=== PATIENT | female | born 1935 | race Caucasian/White ===

== ENCOUNTER 2016-12-13 08:26 | Inpatient (IN) ==
[2016-12-13 09:04] LABS: MANUAL DIFF NEEDED? NO
[2016-12-13 09:07] LABS: BASO% 0.2 % (0.0-0.8); EOS# 0.12 X1000 (0.0-0.7); EOS% 1.3 % (0.0-10.0); HEMATOCRIT 37.4 % (37.0-47.0); HEMOGLOBIN 12.4 g/dL (12.0-16.0); LYMPH# 1.24 X1000 (1.2-3.4); LYMPH% 13.9 % (20.5-51.1); MCH 31.9 PG (27-31); MCHC 33.2 g/dL (33-37); MCV 96.1 FL (81-99); MONO# 0.62 X1000 (0.11-0.59); MONO% 6.9 % (1.7-9.3); MPV 11.1 FL (7.4-10.4); NEUT% 77.7 % (42.2-75.2); PLT 220 X1000 (130-400); RBC 3.89 XMIL (4.2-5.4)
[2016-12-13 09:16] LABS: INR 1.13
--- NOTE | 2016-12-13 09:25 | Diag Imaging Result Document ---
PROCEDURE NAME: HEAD/C-SPINE W/O CONTRAST - 12/13/[address]: A CT dose reduction protocol was used. COMPARISON: 02/04/2015. FINDINGS: Stable moderate cerebral atrophy. No intracranial mass or hemorrhage. The skull is intact. There is some mucus in the right maxillary sinus, otherwise, the sinuses are clear. IMPRESSION: No acute intracranial injury. CT CERVICAL SPINE: A CT dose reduction protocol was used. COMPARISON: None. FINDINGS: Alignment is grossly anatomic. Vertebral body heights are preserved. There is severe multilevel disk space narrowing with degenerative sclerosis and osteophytes. No evidence of fracture or subluxation. No significant central canal compromise. IMPRESSION: Advanced multilevel degenerative disk disease. No acute disease. [facility]
[2016-12-13 09:31] LABS: ALBUMIN 3.7 g/dL (3.5-5.0); CALCIUM 9.5 mg/dL (8.8-10.2); MAGNESIUM 1.8 mg/dL (1.5-2.7); POTASSIUM 4.2 mmol/L (3.5-5.1); TOTAL BILIRUBIN 0.37 mg/dL (0.20-1.00); TOTAL PROTEIN 6.9 g/dL (6.3-8.3)
--- NOTE | 2016-12-13 09:58 | Diag Imaging Result Document ---
PROCEDURE NAME: ABDOMEN/PELVIS W/CONTRAST - 12/13/2016 CT ABDOMEN AND PELVIS WITH INTRAVENOUS CONTRAST, 12/13/2016: A CT dose reduction protocol was used. COMPARISON: CT chest 09/20/2016. FINDINGS: There is a trace left basilar pleural effusion. The right pleural effusion has completely resolved. There is some trace atelectasis in the left lower lobe. There are cholecystectomy clips. The liver, pancreas, spleen, adrenals, and kidneys are normal. No bowel obstruction or inflammation. No free air or free fluid. Urinary bladder, uterus, and rectum are normal. There are stable compression fractures at T11 and L1. IMPRESSION: No acute disease or change from prior. [facility]
[2016-12-13] MEDS ORDERED: NS 1,000 ML IV ONE (11:11)
[2016-12-13] MEDS ORDERED: TYLENOL PO PRN (12:30)
[2016-12-13] MEDS ORDERED: ZOFRAN IV PRN (12:30)
[2016-12-13] MEDS: DUONEB (A & A) INH SCH ×2 (15:50→22:42)
--- NOTE | 2016-12-13 16:28 | HISTORY AND PHYSICAL ---
PRIMARY CARE PROVIDER: CAMERON Fowler, with Dr. Hester. ONCOLOGY: Dr. Abbasi. CHIEF COMPLAINT: Increasing weakness with fall. HISTORY OF PRESENT ILLNESS: Ms. 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 She hit her head and had a left occipital scalp abrasion, left rib and axillary pain with old ecchymosis, but bridge tender to touch. She states that she has been unable to get up and move freely throughout the house. She tries to get up out of the chair, but frequently ends up sliding to the floor secondary to her weakness. She denies any nausea, vomiting, or diarrhea. She denies shortness of breath, phlegm, or fever. She just states that since she has become progressively weaker. Workup revealed that she is dehydrated and has ISIS on CKD. We will admit for further workup of weakness and order physical therapy, occupational therapy, and give her IV fluid hydration. We will also get an EKG to evaluate her atrial fibrillation. We will admit to the medical floor. PAST MEDICAL HISTORY: 1. COPD, on 2 L home O2. 2. Obstructive sleep apnea, on nightly CPAP. 3. Hypothyroidism. 4. Diabetes mellitus type 2. 5. Hypertension. 6. Chronic systolic congestive heart failure. 7. Chronic bilateral lower extremity edema. 8. Chronic atrial fibrillation. 9. 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 10. History of left breast cancer. Receives yearly medication once a year through Dr. Abbasi. PAST SURGICAL HISTORY: 1. Cholecystectomy. 2. Left mastectomy with lymph node removal. 3. Left carotid endarterectomy but no history of stroke. FAMILY HISTORY: Mother had coronary artery disease in her 50's and at the age of 73. SOCIAL HISTORY: She currently lives by herself. She has home health that follows along. She did have a 21 day stent at [facility] and was discharged there on September 13. She states that she smoked about 1.5 packs per day for about 40 years and that she quit about 20 years ago. She states she used to be a social drinker, but does not drink now. Denies illicit drug use. 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 She states she is still on that stay awake and sleep during the day mode. ALLERGIES: No known drug allergies. HOME MEDICATIONS: ProAir inhaled as needed, enteric-coated aspirin 81 mg p.o. daily, Coreg 6.25 mg p.o. at night and 12.5 mg p.o. in the morning, vitamin D3 2000 units p.o. twice daily, Cardizem 120 mg p.o. daily, Benadryl 25 mg p.o. at night for seasonal allergies, Lexapro 20 mg p.o. daily, Lasix 40 mg p.o. daily, Neurontin 300 mg p.o. twice daily, Synthroid 25 mcg p.o. daily, losartan 25 mg p.o. daily, metformin 1000 mg p.o. twice daily, potassium chloride extended release 10 mEq p.o. daily, Pravachol 40 mg p.o. nightly, prednisone 10 mg p.o. daily, Xarelto 20 mg p.o. with supper. REVIEW OF SYSTEMS: Fourteen point review of systems were complete and all were negative except for those mentioned in the above HPI. LABORATORY DATA: White blood cells 8,000, hemoglobin 12, hematocrit 37, platelet count 220,000. PT 12, INR 1.13. Sodium 134, potassium 4.2, chloride is 87, BUN 73, creatinine is 1.7, glucose 135, magnesium 1.8, bilirubin 0.37, AST 20, ALT 14. IMAGING: EKG pending. Head CT and cervical spine CT: No acute intracranial injury. Advanced multilevel degenerative disk disease, but no acute disease. Abdominal and pelvic CT: No acute disease or change from prior. Chest x-ray pending. PHYSICAL EXAMINATION: VITAL SIGNS: Temperature is 98.4 degrees, heart rate 79, respiratory rate 16, blood pressure 123/83, O2 saturation 96% on nasal cannula 2 L. She is 5 feet 2 inches tall, 180 pounds, BMI 32.9. GENERAL: Ms. Indigo Duke is a 81-year-old female. She is in no acute distress. Is able to answer questions appropriately. HEENT: Atraumatic, normocephalic. Pupils equal, round, reactive to light. Extraocular movements intact. There is a small left occipital scalp abrasion noted but no lump or swelling. NECK: No JVD or carotid bruits noted. CARDIOVASCULAR: Irregularly irregular rate and rhythm. No rubs, gallops, or murmurs. PULMONARY: Clear to auscultation. Bilateral breath sounds. No accessory muscle use or work of breathing noted. Left ribcage area with bruising and tenderness. ABDOMEN: Soft, nontender, nondistended. Positive bowel sounds x4. EXTREMITIES: There is 4/5 strength in all extremities. Lower extremity edema 1 to 2+, pitting. There are +1 dorsalis pedal pulses and +2 radial pulses. NEUROLOGIC: Alert and oriented x4. Moves all extremities equally. SKIN: Warm, dry, intact except for left occipital scalp abrasion that is small and bruising or ecchymosis around the left ribcage area. ASSESSMENT AND PLAN: 1. Acute kidney injury on chronic kidney disease stage 1-2. Intravenous fluid hydration for dehydration given. We will repeat a basic metabolic panel in the morning. We will hold the patient's Lasix. Hold metformin. We will hold all nephrotoxic medications. 2. History of atrial fibrillation. Continue Xarelto. We will get an electrocardiogram to evaluate rhythm. Continue beta-hermelindo and Cardizem. 3. Hypertension. Continue beta hermelindo only for now. 4. Hypothyroidism. Continue Synthroid and check thyroid stimulating hormones tomorrow. 5. Diabetes mellitus type 2. We will hold metformin. Do sliding scale insulin with pattern blood glucoses. 6. Chronic systolic congestive heart failure. It appears to be stable. There is no jugular venous distention. She does have lower extremity edema, but she is dehydrated. So will hold Lasix and give intravenous fluid hydration for now, monitor closely. 7. Chronic obstructive pulmonary disease. Continue home 2 L nasal cannula. We will continue albuterol/Atrovent every 6 hours. No exacerbation at this time. 8. Obstructive sleep apnea. Continue CPAP at night. 9. History of left breast cancer. Apparently she had an appointment with Dr. Abbasi for her yearly medication that she gets. We will consult him. 10. Generalized weakness with fall. We will do occupational therapy, physical therapy to assist with strength, conditioning exercises, and will need rehabilitation upon discharge. 11. Deep venous thrombosis prophylaxis. She is on Xarelto. 12. Gastrointestinal prophylaxis. Proton pump inhibitor. Dictated by CAMERON Gonzalez for Chandra Dupree MD cc: MD Talya Farnsworth CRNP Raina Brown, CRNP Omar J. Sosa-Chirinos, MD
[2016-12-13] MEDS: XARELTO PO SCH (18:38)
[2016-12-13] MEDS: HUMULIN R SUBQ SCH ×2 (18:39→23:48)
[2016-12-13] MEDS: NS 1,000 ML IV SCH (18:40)
[2016-12-13] MEDS: NEURONTIN PO SCH (20:45)
[2016-12-13] MEDS: VITAMIN D PO SCH (20:45)
[2016-12-13] MEDS: PRAVACHOL PO SCH (20:45)
[2016-12-13] MEDS: COREG PO SCH (20:45)
[2016-12-14] MEDS: DUONEB (A & A) INH SCH ×4 (03:16→23:14)
--- NOTE | 2016-12-14 05:10 | EKG Report ---
Test Performed on : 12/13/2016 1:53:58 PM Test Reason : DIZZY Blood Pressure : / mmHG Vent. Rate : 061 BPM Atrial Rate : 061 BPM P-R Int : 000 ms QRS Dur : 082 ms QT Int : 422 ms P-R-T Axes : 000 057 055 degrees QTc Int : 424 ms Undetermined rhythm Nonspecific ST and T wave abnormality Abnormal ECG When compared with ECG of 21-SEP-2016 06:42, Current undetermined rhythm precludes rhythm comparison, needs review Criteria for Inferior infarct are no longer present Nonspecific T wave abnormality has replaced inverted T waves in Anterior leads QT has shortened Unconfirmed Result
[2016-12-14] MEDS: SYNTHROID PO SCH ×2 (05:47→06:11)
[2016-12-14] MEDS: HUMULIN R SUBQ SCH ×4 (06:11→21:48)
[2016-12-14 07:38] LABS: MANUAL DIFF NEEDED? NO
[2016-12-14 07:47] LABS: INR 1.22; PTT 30.8 Seconds (22.0-36.0)
[2016-12-14 07:55] LABS: BASO% 0.4 % (0.0-0.8); EOS# 0.19 X1000 (0.0-0.7); EOS% 2.6 % (0.0-10.0); HEMOGLOBIN 12.7 g/dL (12.0-16.0); IMM GRAN# 0.02 X1000 (0.0-0.04); IMM GRAN% 0.3 % (0.0-0.5); LYMPH# 1.56 X1000 (1.2-3.4); LYMPH% 21.6 % (20.5-51.1); MCH 31.4 PG (27-31); MCHC 32.6 g/dL (33-37); MCV 96.5 FL (81-99); MONO# 0.66 X1000 (0.11-0.59); MONO% 9.1 % (1.7-9.3); MPV 11.2 FL (7.4-10.4); PLT 243 X1000 (130-400); RBC 4.04 XMIL (4.2-5.4)
[2016-12-14 07:58] LABS: ALBUMIN 3.4 g/dL (3.5-5.0); CALCIUM 9.3 mg/dL (8.8-10.2); MAGNESIUM 1.6 mg/dL (1.5-2.7); POTASSIUM 3.8 mmol/L (3.5-5.1); TOTAL BILIRUBIN 0.36 mg/dL (0.20-1.00); TOTAL PROTEIN 6.5 g/dL (6.3-8.3)
[2016-12-14] MEDS: NS 1,000 ML IV SCH (08:42)
[2016-12-14] MEDS: LEXAPRO PO SCH (08:44)
[2016-12-14] MEDS: COREG PO SCH ×2 (08:44→21:48)
[2016-12-14] MEDS: VITAMIN D PO SCH ×2 (08:44→21:48)
[2016-12-14] MEDS: PRILOSEC PO SCH (08:44)
[2016-12-14] MEDS: PREDNISONE PO SCH (08:44)
[2016-12-14] MEDS: ASPIRIN EC PO SCH (08:44)
[2016-12-14] MEDS: NEURONTIN PO SCH ×2 (08:44→21:48)
[2016-12-14] MEDS: CARDIZEM CD PO SCH (08:44)
--- NOTE | 2016-12-14 15:08 | PROGRESS NOTE ---
DATE: 12/14/2016 SUBJECTIVE: Increasing weakness and had fell. This is a 81-year-old whose past medical history includes COPD on home O2, diabetes mellitus type 2, congestive heart failure which is systolic dysfunction, atrial fibrillation which is chronic, chronic kidney disease stage 1-2. Apparently had a fall on , about 5 days before admission. Hit her head and had a left occipital scalp abrasion, left rib and axillary pain. Hit the rail I think around her commode. She states that she thinks she lost consciousness and complains that she has become weaker and weaker. PAST MEDICAL HISTORY: 1. COPD, on 2 L O2. 2. Obstructive sleep apnea, on CPAP. 3. Hypothyroidism. 4. Diabetes mellitus type 2. 5. Hypertension. 6. Chronic systolic congestive heart failure. 7. Chronic bilateral lower extremity edema. 8. Chronic atrial fibrillation. 9. Chronic kidney disease stage 1 to 2. 10. History of left breast cancer, receives yearly medication once a year through Dr. Abbasi. PAST SURGICAL HISTORY: 1. Status post cholecystectomy. 2. Left mastectomy, lymph node removal. 3. Left carotid endarterectomy. No history of CVA. OBJECTIVE: General: Today sitting up in chair, eating lunch. Feels much better. Vital signs: Pulse 80, respirations 18, blood pressure 132/74. HEENT: Pupils are equal, round. Lungs: Clear in all lung munoz. Cardiovascular: Regular rhythm and rate without murmur or S3. Abdomen: Soft. Skin: Warm and dry. Intake and output: Urine output is 2300 mL. LAB: White count 7,230, hematocrit 39, platelet count 243,000 thousand. Sodium 136, potassium 3.8, chloride 92, BUN 45, creatinine 1.0. Blood sugar 159, 118, 180. ASSESSMENT AND PLAN: 1. Acute kidney injury stage 1-2. Continue IV hydration. Hold metformin. 2. History of atrial fibrillation. Continue Xarelto. Follow on the monitor. Control rate. 3. Hypertension. Continue beta-hermelindo which also controls atrial fibrillation and ventricular rate. 4. Hypothyroidism, on Synthroid. Appears be euthyroid. 5. Diabetes mellitus type 2. Follow sugars. 6. Chronic systolic congestive heart failure. Volume status appears to be good. Good compensation. 7. Chronic obstructive pulmonary disease, on home O2 at 2 L. 8. Obstructive sleep apnea. 9. History of breast cancer in the left in the past. Note, she had a CT of her head done yesterday. Advanced multilevel degenerative disk disease but no intracranial abnormality. She had a CT of the abdomen and pelvis, no acute disease. They compared it to 09/20/2016. REVIEW OF ORDERS: I do not see any change at this point. She is on Xarelto 20 mg a day. She is on Pravachol 40 mg a day, prednisone 10 mg a day, Prilosec 40 mg a day, normal saline at 75 mL an hour, levothyroxine 25 mcg a day, Neurontin 300 mg b.i.d., Lexapro 20 mg q.a.m., diltiazem CD 120 mg daily, Coreg 6.25 mg b.i.d., aspirin 81 mg a day. She is getting albuterol ipratropium breathing treatments. cc: Edison Sanchez MD
[2016-12-14] MEDS: XARELTO PO SCH (16:32)
--- NOTE | 2016-12-14 17:08 | CONSULTATION ---
DATE OF CONSULTATION: 12/14/2016 ADMITTING PHYSICIAN: Dr. Clancy. REQUESTING PHYSICIAN: Dr. Clancy. PRIMARY CARE PROVIDER: Dr. Hester. ONCOLOGIST: Dr. Abbasi. We appreciate this consult. CHIEF COMPLAINT: Fall with dehydration and acute kidney injury and history of breast cancer. HISTORY OF PRESENT ILLNESS: Ms Duke is a very pleasant 81-year-old female, well known to us with a history of breast cancer. She is status post chemotherapy and radiation therapy completed in 2007. The patient continues to follow up in clinic. She does have a history of osteoporosis as well and was actually scheduled for Reclast infusion today. The patient reports that she had a fall approximately 5 days ago. She states that she hit her head and since that time has had profound weakness. Home health nurse presented to her home and recommended that she present to [facility] Emergency Department. Upon presentation to [facility] the patient was found to be in acute kidney injury with a history of chronic kidney disease. The patient was begun on IV fluid hydration and it was decided that she would be admitted. PAST MEDICAL HISTORY: 1. COPD on 2 L home O2. 2. Obstructive sleep apnea on CPAP. 3. Hypothyroidism. 4. Diabetes mellitus type 2. 5. Hypertension. 6. Chronic systolic congestive heart failure. 7. Chronic bilateral lower extremity edema. 8. Chronic atrial fibrillation. 9. 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 10. History of left breast cancer status post chemoradiation therapy completed in 2007. PAST SURGICAL HISTORY: 1. Cholecystectomy. 2. Left mastectomy with lymph node removal. 3. Left carotid endarterectomy. FAMILY HISTORY: Negative for any hematologic or oncologic problems. SOCIAL HISTORY: The patient does live alone. She has a history of smoking 1-1/2 pack cigarettes daily and quit approximately 20 years ago. She does not use alcohol or illicit drugs. MEDICATIONS ON ADMISSION: 1. ProAir inhalation. 2. Aspirin 81 mg. 3. Coreg. 4. Vitamin D3. 5. Cardizem. 6. Benadryl. 7. Lexapro. 8. Lasix. 9. Neurontin. 10. Synthroid. 11. Losartan. 12. Metformin. 13. Potassium chloride. 14. Pravachol. 15. Prednisone. 16. Xarelto. ALLERGIES: The patient has no known drug allergies. REVIEW OF SYSTEMS: A 14-point review of systems was obtained and is negative except for as mentioned in HPI. PHYSICAL EXAM: General: Ms Duke is a very pleasant 81-year-old female, well developed, well nourished. She is sitting up in a chair in no apparent distress. Vital Signs: Temperature is afebrile. Blood pressure 132/74, heart rate 84, respirations are 18. O2 saturation is 98% on 2 L nasal cannula O2. HEENT: Normocephalic, atraumatic. Mucous membranes are pink and moist. Sclerae is anicteric. Extraocular movements intact. Neck: Supple. Lungs: Clear to auscultation bilaterally. Chest expansion is equal bilaterally. CV: S1, S2 is heard without murmur, rub or gallop. Abdomen: Soft, nondistended, nontender. Bowel sounds are positive in all quadrants. No rebound or guarding noted. Extremities: Without clubbing or cyanosis. She does have trace bilateral lower extremity edema. Dermatologic: No rashes, bruises or lesions. Neurologic: The patient is awake, alert, and oriented x3. She has no focal deficit at this time. LABORATORY DATA: Hemoglobin 12.7, hematocrit 39.0, white blood cell count 7.23, platelets 243,000, ANC is 4.77. INR 1.22. Sodium 136, potassium 3.8, chloride 92, CO2 is 31, BUN 45, creatinine 1.0, glucose 118, calcium is 9.3, magnesium 1.6. ASSESSMENT AND PLAN: 1. History of breast cancer status post chemoradiation therapy completed in 2007. The patient continues to be followed in clinic by Dr. Abbasi. 2. Osteoporosis. Reclast was actually scheduled for today. We will reschedule Reclast infusion after acute illness is resolved. 3. Acute kidney insufficiency on chronic kidney disease stage 1 to 2, currently on intravenous fluid hydration with improvement in creatinine to 1.0. 4. History of atrial fibrillation on Xarelto. The patient is currently on a beta hermelindo and Cardizem as well. Would recommend continued Xarelto therapy. 5. Hypertension. We agree with antihypertensives as ordered. 6. Diabetes mellitus type 2 on sliding scale insulin. Stable at this time with a glucose of 118. 7. We will follow along with you and make further recommendations pending outcomes. The above reflects the history, exam, assessment and plan of Dr. Abbasi. Dictated by CAMERON Mireles for Arthur Abbasi MD cc: CAMERON Mireles MD
[2016-12-14] MEDS ORDERED: INSULIN PEN NEEDLES ONE (20:33)
[2016-12-14] MEDS: PRAVACHOL PO SCH (21:48)
[2016-12-15] MEDS: DUONEB (A & A) INH SCH ×3 (03:35→16:01)
[2016-12-15] MEDS: NS 1,000 ML IV SCH (05:17)
[2016-12-15] MEDS: SYNTHROID PO SCH (06:11)
[2016-12-15] MEDS: HUMULIN R SUBQ SCH ×4 (06:12→21:17)
[2016-12-15] MEDS ORDERED: LASIX IV ONE (08:56)
[2016-12-15] MEDS ORDERED: LOPRESSOR IV ONE (08:56)
[2016-12-15] MEDS ORDERED: KLOR-CON PO ONE (08:57)
[2016-12-15] MEDS: ASPIRIN EC PO SCH (08:58)
[2016-12-15] MEDS: VITAMIN D PO SCH ×2 (08:59→21:16)
[2016-12-15] MEDS: PRILOSEC PO SCH (09:00)
[2016-12-15] MEDS: NEURONTIN PO SCH ×2 (09:00→21:16)
[2016-12-15] MEDS: LEXAPRO PO SCH (09:00)
[2016-12-15] MEDS: PREDNISONE PO SCH (09:00)
[2016-12-15] MEDS: CARDIZEM CD PO SCH (09:00)
[2016-12-15] MEDS: COREG PO SCH ×2 (09:01→21:16)
--- NOTE | 2016-12-15 09:19 | Diag Imaging Result Document ---
PROCEDURE NAME: CHEST-PORTABLE - 12/15/2016 PORTABLE CHEST: COMPARISON: 09/22/2016. FINDINGS: The lungs are well expanded except for atelectasis or an infiltrate in the left base. I believe there is a small left effusion as well. There are scattered granulomata. The heart remains mildly prominent. The vessels are not distended. IMPRESSION: Atelectasis versus a small infiltrate in the left base.
[2016-12-15 09:28] LABS: MANUAL DIFF NEEDED? NO
[2016-12-15 09:32] LABS: BASO% 0.1 % (0.0-0.8); EOS# 0.15 X1000 (0.0-0.7); EOS% 2.2 % (0.0-10.0); HEMATOCRIT 35.7 % (37.0-47.0); HEMOGLOBIN 11.4 g/dL (12.0-16.0); LYMPH# 1.23 X1000 (1.2-3.4); MCH 31.2 PG (27-31); MCHC 31.9 g/dL (33-37); MCV 97.8 FL (81-99); MONO# 0.49 X1000 (0.11-0.59); MONO% 7.2 % (1.7-9.3); MPV 10.9 FL (7.4-10.4); NEUT% 72.5 % (42.2-75.2); PLT 212 X1000 (130-400); RBC 3.65 XMIL (4.2-5.4)
--- NOTE | 2016-12-15 10:11 | EKG Report ---
Test Performed on : 12/15/2016 09:10:09 AM Test Reason : afib Blood Pressure : / mmHG Vent. Rate : 061 BPM Atrial Rate : 394 BPM P-R Int : 000 ms QRS Dur : 084 ms QT Int : 402 ms P-R-T Axes : 000 014 121 degrees QTc Int : 404 ms Atrial fibrillation. with a competing junctional pacemaker. Low voltage QRS Nonspecific ST and T wave abnormality Abnormal ECG When compared with ECG of 13-DEC-2016 13:53, Nonspecific T wave abnormality, worse in Lateral leads Confirmed by Adela MUNOZ, Wesly Lovelace ([id number]) on 12/15/2016 6:41:44 PM
[2016-12-15] MEDS: XARELTO PO SCH (16:23)
--- NOTE | 2016-12-15 16:51 | PROGRESS NOTE ---
DATE: 12/15/2016 SUBJECTIVE: Ms. Duke was admitted on 12/13 for increased weakness. She had a fall. She fell in her bathroom. Sounds like it may have been a rapid syncopal episode, drop in blood pressure. She has a history of COPD on home O2. Diabetes mellitus. Congestive heart failure. Atrial fibrillation which is chronic. Chronic kidney disease stage 1-2. Left occipital scalp abrasion and right rib and axillary pain and ecchymosis. So was admitted with acute kidney injury. Given some fluid. MEDICAL HISTORY: 1. Status post fall. 2. Shoulder pain and rib pain. 3. Chronic atrial fibrillation. 4. Hypertension. 5. Hypothyroidism. 6. Diabetes mellitus. 7. History of heart failure. DIAGNOSTIC STUDIES: I think looking back to see if we had done an echocardiogram, she had an echocardiogram done on 08/24/2012. Right atrium was normal size. Right ventricle appeared to be enlarged with normal systolic function at that time. The left ventricle overall size appears normal at 4.6 cm. Left ventricular systolic function. Extremely difficult to estimate. Some views maybe 40%. Others appear in the 50% range, but does appear to have diminished systolic function. PHYSICAL EXAM: General: On exam today, she feels better. Vital Signs: Temperature 98.6, pulse 67, respirations 22, blood pressure 98/77. Eyes: Pupils are equal, round. Neck: CVP less than 6 cm. Lungs: Clear in all lung munoz. Cardiovascular: Regular rate without murmur or S3. Good urine output. LAB: White count 6840, hematocrit 35, platelet count 212,000. Blood sugar is 196, 136, 138. ASSESSMENT AND PLAN: 1. Acute kidney injury, stage 1 or 2 which is improved with fluids. Will recheck her basic metabolic profile. Creatinine down to 1.0 though. 2. Recent fall. Pain in her shoulder and ribs. Seems to be improving. Continue physical therapy. 3. Atrial fibrillation which is chronic. She is on Xarelto. 4. Hypothyroidism. 5. Diabetes mellitus type 2. Blood sugars well controlled. 6. Mild systolic congestive heart failure. Appears well compensated. 7. Chronic obstructive pulmonary disease on home oxygen. 8. Obstructive sleep apnea. 9. History of breast cancer in the distant past. Note, she states that she did not know anything about atrial fibrillation, even though she has history of chronic atrial fibrillation, and she is on medication for it. At any rate, she appears to be improving. Will continue her present orders. Check some more blood work in the morning. cc: Edison Sanchez MD
[2016-12-15] MEDS: PRAVACHOL PO SCH (21:16)
[2016-12-16] MEDS: DUONEB (A & A) INH SCH ×5 (02:19→21:09)
[2016-12-16] MEDS: HUMULIN R SUBQ SCH ×4 (06:11→20:54)
[2016-12-16] MEDS: SYNTHROID PO SCH (06:11)
--- NOTE | 2016-12-16 06:53 | EKG Report ---
Test Performed on : 12/16/2016 06:15:37 AM Test Reason : CP Blood Pressure : / mmHG Vent. Rate : 089 BPM Atrial Rate : 250 BPM P-R Int : 000 ms QRS Dur : 084 ms QT Int : 368 ms P-R-T Axes : 000 015 133 degrees QTc Int : 447 ms Atrial fibrillation. Nonspecific T wave abnormality Abnormal ECG When compared with ECG of 15-DEC-2016 09:10, No significant change was found Confirmed by Adela MUNOZ, Wesly Lovelace ([id number]) on 12/16/2016 8:39:00 AM
--- NOTE | 2016-12-16 07:27 | Diag Imaging Result Document ---
PROCEDURE NAME: CHEST-PORTABLE - 12/16/2016 AP PORTABLE CHEST, 12/16/2016 AT 0500 HOURS: FINDINGS: There is alveolar opacity in the retrocardiac region of the left lower lobe. This has not changed appreciably since the previous study of 12/15/2016. IMPRESSION: Atelectasis versus pneumonia left lower lobe.
[2016-12-16 07:31] LABS: CALCIUM 8.6 mg/dL (8.8-10.2); POTASSIUM 3.7 mmol/L (3.5-5.1)
[2016-12-16 08:24] LABS: FREE T4 1.36 ng/dL (0.93-1.70)
[2016-12-16] MEDS: PREDNISONE PO SCH (08:47)
[2016-12-16] MEDS: COREG PO SCH ×2 (08:47→20:54)
[2016-12-16] MEDS: VITAMIN D PO SCH ×2 (08:47→20:53)
[2016-12-16] MEDS: LEXAPRO PO SCH (08:47)
[2016-12-16] MEDS: NEURONTIN PO SCH ×2 (08:47→20:53)
[2016-12-16] MEDS: ASPIRIN EC PO SCH (08:48)
[2016-12-16] MEDS: CARDIZEM CD PO SCH (08:48)
[2016-12-16] MEDS: PRILOSEC PO SCH (08:48)
--- NOTE | 2016-12-16 14:40 | PROGRESS NOTE ---
DATE: 12/16/2016 SUBJECTIVE: Ms. Duke is feeling better. Breathing better. OBJECTIVE: Temperature 97.9 degrees, pulse 91, respirations 19, blood pressure 132/75.HEENT: The pupils are equal, round. Lungs: Clear in all lung munoz. Cardiovascular: Regular rhythm and rate without murmur or S3. Blood sugars 214,126, 295. LABORATORY DATA: Reviewed from yesterday. Hematocrit stable at 35, white count okay. Blood work from this morning: Electrolytes, sodium 139, potassium 3.7, chloride 96, BUN 29, creatinine 0.9, blood sugar is 126, 11, 295. EKG done yesterday, atrial fibrillation with nonspecific T-wave abnormality. No change. Chest x- ray from today, atelectasis versus pneumonia. Left lower lobe. Clinically improving. ASSESSMENT AND PLAN: 1. Acute kidney injury, which appears to have resolved. Creatinine 0.9. 2. Left lower lobe pneumonia. Clinically improving. Radiographically very little change. Continue present antibiotic and breathing treatments. 3. Diabetes mellitus type 2. Blood sugars have been sporadic but overall she is eating well and getting a little stronger. She would like to go to rehab. We will see what we can set up for rehab for her. cc: Edison Sanchez MD
--- NOTE | 2016-12-16 16:31 | PROGRESS NOTE ---
DATE: 12/16/2016 ADDENDUM REPORT: Note that she has left lower lobe atelectasis and really clinically does not appear to show any sign of pneumonia. Clinically, she is improved. She is not on antibiotics. Her white blood cell count is well in the normal limits, so I do not see any sign of active pneumonitis. cc: Edison Sanchez MD
[2016-12-16] MEDS: XARELTO PO SCH (16:51)
[2016-12-16] MEDS: PRAVACHOL PO SCH (20:53)
[2016-12-17] MEDS: DUONEB (A & A) INH SCH ×3 (04:01→15:33)
[2016-12-17] MEDS: HUMULIN R SUBQ SCH ×3 (06:07→16:59)
[2016-12-17] MEDS: SYNTHROID PO SCH (06:07)
[2016-12-17] MEDS: VITAMIN D PO SCH (09:38)
[2016-12-17] MEDS: ASPIRIN EC PO SCH (09:38)
[2016-12-17] MEDS: LEXAPRO PO SCH (09:38)
[2016-12-17] MEDS: CARDIZEM CD PO SCH (09:38)
[2016-12-17] MEDS: NEURONTIN PO SCH (09:38)
[2016-12-17] MEDS: PRILOSEC PO SCH (09:38)
[2016-12-17] MEDS: PREDNISONE PO SCH (09:39)
[2016-12-17] MEDS: COREG PO SCH (09:43)
[2016-12-17 14:27] VITALS: BP 97/44
--- NOTE | 2016-12-17 14:38 | DISCHARGE SUMMARY ---
ADMISSION DATE: 12/13/2016 DISCHARGE DATE: This is a 81-year-old patient followed by Dr. Abbasi with Oncology, by Renetta Castillo in Dr. Hester's office. Ms. Duke is a 81-year-old with a past medical history of COPD, is on O2 at 2 L, diabetes mellitus type 2, history of congestive heart failure, history of atrial fibrillation which is chronic, history of chronic kidney disease. Had a fall in the past, , 5 days before admission. She hit her head, left occipital scalp abrasion, left rib axillary pain, ecchymoses but mangle tender to touch. She states that she was unable to get up or move freely through the house. She tries to get up out of the bed or chair but frequently ends up sliding on the floor secondary to weakness. Denies any nausea, vomiting, diarrhea. She denies shortness of breath, sputum production. States that since or roughly 5 days before she came in she became progressively weaker, woke up on the morning of admission. Workup in the ER revealed mild dehydration, acute kidney injury, chronic kidney disease. Admitted for further workup. EKG showed atrial fibrillation. PAST MEDICAL HISTORY: 1. COPD on 2 L O2. 2. Obstructive sleep apnea on CPAP. 3. Hypothyroidism. 4. Diabetes mellitus type 2. 5. Hypertension. 6. Chronic systolic congestive heart failure. 7. Chronic bilateral lower extremity edema. 8. Chronic atrial fibrillation. 9. Chronic kidney disease stage 1 or 2. 10. Left breast cancer followed by Dr. Abbasi. PAST SURGICAL HISTORY: 1. Cholecystectomy. 2. Left mastectomy and left node removal. 3. Left carotid endarterectomy with no history of stroke. She was admitted. No sign of significant fractures. There was a question of whether she had pneumonia. Followup chest x-ray revealed atelectasis in the left lower lobe. She was treated empirically and it was possible there could be a pneumonia as well which improved clinically. Breathing comfortably and wanted to go to rehab on 12/17/2016. Remained in atrial fibrillation. Rate was controlled. Her renal function looks good. Blood sugars under fairly good control. [place] she could go to rehab on 12/17/2016. DISCHARGE MEDICATIONS: She will be on Xarelto 20 mg a day. Prednisone 10 mg a day. Pravachol 40 mg a day. Prilosec 20 mg a day. Synthroid 25 mcg a day. Neurontin 300 mg b.i.d. Lexapro 20 mg q.a.m. Cardizem CD 120 mg daily. Vitamin D 2000 units b.i.d. Coreg 6.25 mg b.i.d. Aspirin 81 mg a day. Continue her present O2. cc: Edison Sanchez MD
[2016-12-17] MEDS: XARELTO PO SCH (17:02)
--- NOTE | 2017-01-12 10:16 | PROVIDER DOCUMENTATION ---
This chart was entered by Jacy Hernandez Scribe, acting as scribe for Ezio Lara MD. HPI-General Adult - General Chief Complaint: Fall Stated Complaint: FALL Time Seen by Provider: 12/13/16 08:30 Source: patient Allergies/Adverse Reactions: Patient Allergies Allergy/AdvReac Type Severity Reaction Status Date / Time No Known Allergies Allergy Verified 12/13/16 08:39 Home Medications: Home Medication List Medication Instructions Recorded Confirmed Last Taken Type Carvedilol [Coreg] 6.25 mg PO ORDERED 04/04/15 12/13/16 09/19/16 History Levothyroxine [Synthroid] 25 microgm PO DAILY 04/04/15 12/13/16 09/19/16 History Potassium Chloride E.r. [Micro-K] 10 meq PO DAILY 04/04/15 12/13/16 09/18/16 History Metformin [Glucophage] 1,000 mg PO BID CC 09/19/16 12/13/16 09/19/16 History Diphenhydramine HCl [Benadryl] 25 mg PO DAILY 09/20/16 12/13/16 09/19/16 09:00 History Gabapentin 300 mg PO BID 09/20/16 12/13/16 Unknown History PRAVAstatin [Pravachol] 40 mg PO QPM 09/20/16 12/13/16 09/18/16 21:00 History Aspirin EC 81 mg PO DAILY #0 tablet 09/23/16 12/13/16 Unknown Rx Diltiazem C.d. [Cardizem Cd] 120 mg PO DAILY #30 capsule 09/23/16 12/13/16 Unknown Rx Escitalopram [Lexapro] 20 mg PO QAM #0 tablet 09/23/16 12/13/16 Unknown Rx Furosemide [Lasix] 40 mg PO DAILY #30 09/23/16 12/13/16 09/18/16 Rx Losartan [Cozaar] 25 mg PO DAILY #30 tablet 09/23/16 12/13/16 Unknown Rx Rivaroxaban [Xarelto] 20 mg PO WSUPPER #30 tablet 09/23/16 12/13/16 Unknown Rx Albuterol Sulfate [Proair Hfa] 90 mcg IH DIRECTED 12/13/16 12/13/16 Unknown History Cholecalciferol (Vitamin D3) 2,000 unit PO BID 12/13/16 12/13/16 Unknown History [Vitamin D3] Prednisone 10 mg PO DAILY 12/13/16 12/13/16 Unknown History Acetaminophen [Tylenol] 650 mg PO Q6H PRN PRN #0 tablet 12/17/16 Unknown Rx Albuterol 2.5MG/Ipratrop 0.5MG 3 ml INH RTQ6H neb 12/17/16 Unknown Rx [Duoneb (A & A)] Omeprazole [Prilosec] 40 mg PO DAILY capsule 12/17/16 Unknown Rx - History of Present Illness -Gen Adult Nature of Presenting Problems: 81 year old F presents to the ED with a cc of a fall with an onset of 4 days ago. PT states that she has gotten more weak since then. EMS was called at the time of the fall by Home Health but pt did not want to be sent to the hospital. Daughter states that she has fallen a few more times since then without injury. PT c/o left lateral rib pain and a abrasion to left occipital head. PT was seen 3 months ago and admitted and then sent to 21 days of rehab. Daughter requesting admission for admission to 21 days of rehab. Location of Pain/Injury: reports: chest (left ribs) Quality of Pain: reports: aching Severity: reports: mild Onset/Duration: reports: 4 days ago Timing: reports: still present Context/Activities at Onset: reports: none Associated Symptoms: reports: chest pain (left ribs), weakness Review of Systems - Adult - REVIEW OF SYSTEMS - ADULT Constitutional: denies: chills, fever Eyes: reports: no symptoms reported Ears, Nose, Mouth & Throat: reports: no symptoms reported Cardiovascular: reports: chest pain (left rib pain). denies: palpitations Respiratory: denies: cough, shortness of breath Gastrointestinal: denies: nausea, vomiting Genitourinary: reports: no symptoms reported Musculoskeletal: reports: muscle aches. denies: muscle weakness Integumentary: reports: other (head abrasion). denies: skin sores/ulcer, skin thickening Neurological: reports: no symptoms reported Psychiatric: reports: no symptoms reported Endocrine: reports: no symptoms reported Hematologic/Lymphatic: reports: no symptoms reported Allergic/Immunologic: reports: no symptoms reported All Other Systems: Reviewed and Negative Past History - Adult - PAST MEDICAL HISTORY-ADULT Review of Records: reports: Nursing Assessment Review, Medications Reviewed Major Childhood Illnesses: reports: denies history Cardiovascular: reports: CAD, CHF, HTN, hyperlipidemia - PRIOR SURGERIES/PROCEDURES Surgical/Procedure History: reports: indwelling device (port a cath), other ( masectomy, carotid artery; Angiogram in 2015) - IMMUNIZATION STATUS Childhood Immunizations: See Nurse Assessment Flu Vaccine: See Nurse Assessment - SOCIAL HISTORY Smoking: non-smoker Substance Use: none/never Alcohol Use Frequency: never Physical Exam-General - PHYSICAL EXAM-ADULT Initial Vital Signs Reviewed: Yes - CONSTITUTIONAL General Appearance: appears well, alert, no apparent distress - HEAD, EARS, NOSE, MOUTH & THROAT HENMT: other (abrasion to left occipital head, dry oral membranes) - RESPIRATORY Respiratory: lungs clear, normal breath sounds, other (left lateral rib tenderness). negative: crepitus - CARDIOVASCULAR Cardiovascular: irregularly irregular - GASTROINTESTINAL (ABDOMEN) Abdominal Exam: non tender, soft - MUSCULOSKELETAL Extremity: normal inspection - SKIN Integumentary: normal color, normal turgor, warm/dry - NEUROLOGIC Neurologic: motor weakness (generalized) - PSYCHIATRIC Psych/Mental Status: normal mood/affect, normal thought content, normal thought process, oriented x 3 Progress - PLAN OF CARE/RESULTS Progress/Plan/Lab Results: Vital Signs - 8 hr 12/13/16 08:26 Temperature 98.4 F Pulse Rate 78 Respiratory Rate 18 Blood Pressure 157/71 O2 Sat by Pulse Oximetry 97 Laboratory Results - last 24 hr 12/13/16 12/13/16 12/13/16 08:50 08:50 08:50 WBC 8.94 RBC 3.89 L Hgb 12.4 Hct 37.4 MCV 96.1 MCH 31.9 H MCHC 33.2 RDW Std Deviation 14.2 Plt Count 220 MPV 11.1 H Immature Gran % (Auto) 0.0 Neut % (Auto) 77.7 H Lymph % (Auto) 13.9 L Stearns % (Auto) 6.9 Eos % (Auto) 1.3 Baso % (Auto) 0.2 Immature Gran # (Auto) 0.00 Neut # (Auto) 6.94 H Lymph # (Auto) 1.24 Stearns # (Auto) 0.62 H Eos # (Auto) 0.12 Baso # (Auto) 0.02 PT 12.0 H INR 1.13 Sodium 134 L Potassium 4.2 Chloride 87 L Carbon Dioxide 32 Anion Gap 15 BUN 73 H Creatinine 1.7 H Estimated GFR/1.73 m2 29 BUN/Creatinine Ratio 43 Glucose 135 H Calculated Osmolality 292 Calcium 9.5 Magnesium 1.8 Total Bilirubin 0.37 AST 20 ALT 14 Alkaline Phosphatase 65 Total Protein 6.9 Albumin 3.7 Globulin 3.2 Albumin/Globulin Ratio 1.2 Orders Category Date Time Status ABDOMEN/PELVIS W/CONTRAST [CT] Stat Exams 12/13/16 08:37 Draft HEAD/C-SPINE W/O CONTRAST [CT] Stat Exams 12/13/16 08:37 Draft CBC WITH DIFF [HEME] Stat Lab 12/13/16 08:50 Completed COMPREHENSIVE METABOLIC PANEL [CHEM] Stat Lab 12/13/16 08:50 Completed MAGNESIUM [CHEM] Stat Lab 12/13/16 08:50 Completed PROTIME WITH INR [COAG] Stat Lab 12/13/16 08:50 Completed pt is seen to have profound azotemia, new in past 6 days. likely prerenal from dehydration and poor intake. Dr. Vela paged for admit, coming to ED to [facility]. Result Diagrams: 12/15/16 09:10 12/16/16 06:55 - CT/MRI 1 CT Study: Cervical Spine, Head Impression: Normal CT Results: No acute intracranial disease, Advanced multilevel DDD(Rubén) 2 CT Study: Abdomen, Pelvis Impression: Normal CT Results: No acute disease or change from prior(Dr. Montana) - CONSULTS/PCP/HOSPITALIST Notification #1 *Consult/PCP/Hospitalist*: Dr. Clancy(hospitalist) Time Discussed: 11:28 Consult Disposition: Admit Departure - Departure Time of Disposition Decision: 12:00 DIAGNOSIS: Renal failure (ARF), acute on chronic, Orthostatic syncope Disposition: ADMITTED INPATIENT 09 Certified Medical Emergency: Emergent Condition: Fair - Critical Care Note This patient required my direct & personal management of CC.: No This chart was documented by the indicated scribe, (Jacy Hernandez Scribe) and accurately reflects the services I performed and decisions made by me, Ezio Lara MD, as attested by the provider's signature.
== END 2016-12-17 17:53 ==
LOC: ED 08:26 → 3N 13:30 → SUATTDRO 13:30
PROVIDERS: ATTEND Emergency Medicine

== ENCOUNTER 2017-03-23 11:44 | Inpatient (IN) ==
[2017-03-23 12:56] LABS: MANUAL DIFF NEEDED? NO
--- NOTE | 2017-03-23 13:08 | Diag Imaging Result Doc PS360 ---
EXAM: CHEST-1 VIEW HISTORY: a fib TECHNIQUE: Portable AP COMPARISON: 12/16/2016 FINDINGS: There are scattered granuloma bilaterally. The heart remains mildly prominent. The vessels are not distended. There are several old rib fractures. Tiny left effusion versus pleural thickening. No consolidation. IMPRESSION: Cardiomegaly. Electronically signed by Sae Brandon 03/23/2017 1:05 PM
[2017-03-23 13:09] LABS: BASO% 0.5 % (0.0-0.8); EOS# 0.21 X1000 (0.0-0.7); EOS% 2.8 % (0.0-10.0); HEMATOCRIT 36.8 % (37.0-47.0); HEMOGLOBIN 11.4 g/dL (12.0-16.0); LYMPH# 1.27 X1000 (1.2-3.4); MCH 32.5 PG (27-31); MCV 104.8 FL (81-99); MONO# 0.62 X1000 (0.11-0.59); MONO% 8.3 % (1.7-9.3); MPV 10.6 FL (7.4-10.4); NEUT% 71.4 % (42.2-75.2); PLT 238 X1000 (130-400); RBC 3.51 XMIL (4.2-5.4)
[2017-03-23 13:16] LABS: ALBUMIN 3.7 g/dL (3.5-5.0); CALCIUM 9.4 mg/dL (8.8-10.2); MAGNESIUM 1.8 mg/dL (1.5-2.7); TOTAL BILIRUBIN 0.38 mg/dL (0.20-1.00); TOTAL PROTEIN 6.2 g/dL (6.3-8.3)
[2017-03-23] MEDS ORDERED: ZOFRAN IV PRN (13:45)
[2017-03-23] MEDS ORDERED: TYLENOL PO PRN (13:45)
[2017-03-23] MEDS ORDERED: SALINE LOCK IV FLUID XX ONE (13:45)
--- NOTE | 2017-03-23 15:22 | EKG Report ---
Test Performed on : 03/23/2017 1:57:48 PM Test Reason : Heart Failure Admission Blood Pressure : / mmHG Vent. Rate : 048 BPM Atrial Rate : 046 BPM P-R Int : 000 ms QRS Dur : 078 ms QT Int : 476 ms P-R-T Axes : 000 056 041 degrees QTc Int : 425 ms Atrial fibrillation. with slow ventricular response. Low voltage QRS Septal infarct , age undetermined Abnormal ECG When compared with ECG of 16-DEC-2016 06:15, Vent. rate has decreased BY 41 BPM Septal infarct is now present Nonspecific T wave abnormality no longer evident in Lateral leads Confirmed by Matteo Noriega DO ([id number]) on 03/25/2017 1:24:45 PM
[2017-03-23] MEDS: LASIX 100 MG in NS 90 ML IV SCH (15:37)
[2017-03-23] MEDS: DUONEB (A & A) INH SCH ×2 (15:39→22:37)
--- NOTE | 2017-03-23 16:31 | HISTORY AND PHYSICAL ---
PRIMARY CARE PROVIDER: CARLOS Fowler with Dunia Hester MD. PRIMARY ONCOLOGIST: Arthur Abbasi MD. LEATHER SEASONER: John Noriega MD. CREDIT CONTROL OFFICER: Amilcar Blakely MD. CHIEF COMPLAINT: Increased shortness of breath with voice loss, dizziness and falls. HISTORY OF PRESENT ILLNESS: Ms. Indigo Duke is a 81-year-old, morbidly obese, female with a medical history of COPD home O2 dependent, systolic diastolic congestive heart failure, hypothyroidism, diabetes mellitus type 2, and chronic atrial fibrillation. She has been directly admitted via Dr. John Noriega's office. Her story is 3 weeks ago she had a fall due to syncope. She has right eye bruising and she fractured her left wrist. She currently has a brace on. She complains of having dizzy spells when she stands up too fast. She has had shortness of breath that comes and goes, it is primarily worse with activity. She also has dizziness with activity. She has PND. She is unable to walk 10 feet without significant shortness of breath. She complains of increased swelling in her lower extremities and in her abdomen. She states that she has had a 5 pound weight gain over the last week and a 30 pound weight gain over the past year. Given all these symptoms she presented to Dr. John Noriega today who then wanted to directly admit her for acute on chronic diastolic congestive heart failure. She will be started on a Lasix drip, have routine labs and an echocardiogram. We will consult Dr. John Noriega during this admit. PAST MEDICAL HISTORY: COPD on 2 L home O2, obstructive sleep apnea on nightly CPAP, hypothyroidism, diabetes mellitus type 2, hypertension, chronic systolic congestive heart failure, chronic diastolic congestive heart failure, chronic bilateral lower extremity edema, hyperlipidemia, depression and diabetic neuropathy. She also has lymphedema. She uses a lymphedema pump at home over the left arm 1 hour a day every day for the last 4-5 years. She has chronic atrial fibrillation, CKD stage 1 to 2, and history of left breast cancer. She receives yearly medication through Dr. Abbasi. PAST SURGICAL HISTORY: Cholecystectomy, left mastectomy with lymph node removal, left carotid endarterectomy but no history of stroke. FAMILY HISTORY: Mother had coronary artery disease in her 50's and at the age of 73. SOCIAL HISTORY: She lives by herself but her kids have been staying with her. She has been receiving home health. She states that she smoked 1-1/2 packs per day for 40 years but that she quit 20 years ago. She used to be a social drinker but is not a drinker amount. Denies any illicit drug use. 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 She states that she still feels like she is on the stay awake during the night and sleep during the day mode. She uses a walker to ambulate through the house. ALLERGIES: No known drug allergies. HOME MEDICATIONS: Albuterol/Atrovent q.6 hours, aspirin enteric-coated 81 mg p.o. daily, Bumex 2 mg daily, vitamin D3 2000 units p.o. twice daily, Cardizem 120 mg p.o. daily, Benadryl 25 mg p.o. daily, Lexapro 20 mg p.o. daily, Neurontin 300 mg p.o. twice daily, levothyroxine 25 mcg p.o. daily, Losartan 50 mg p.o. daily, metformin 1000 mg p.o. twice daily, potassium chloride ER 10 mEq p.o. daily, pravastatin 40 mg p.o. nightly, prednisone 10 mg p.o. daily, Xarelto 20 mg p.o. daily. REVIEW OF SYSTEMS: Fourteen point review of systems were complete and all were negative except for those mentioned in the above HPI. She does have spells of laryngitis during our talk. PHYSICAL EXAMINATION: VITAL SIGNS: Not yet recorded. Height is 5 feet 2 inches, 207 pounds, BMI 37.9. GENERAL: Ms. Indigo Duke is an ill-appearing, morbidly obese, female, 81 years old, who is in no acute distress but does get short of breath while talking and has spells of no voice. HEENT: Atraumatic, normocephalic. She does have some bruising over the right orbital area. Mucous membranes are moist. Extraocular movements are intact. Pupils are equal, round, reactive to light. No redness in her throat noted. NECK: No JVD or carotid bruits noted. CARDIOVASCULAR: Irregularly irregular rate and rhythm. No rubs, gallops, or murmurs. PULMONARY: Clear to auscultation in bilateral upper lobes anteriorly and posteriorly. Bilateral lower lobes anteriorly and posteriorly with crackles noted. Mild accessory muscle use with respirations, currently on 2 L nasal cannula, mild work of breathing during talking. ABDOMEN: Round, obese, soft, nontender, positive bowel sounds x4. EXTREMITIES: +2 to 3 pitting edema in bilateral lower extremities. Mild edema in the lower abdomen. +2 radial pulses bilaterally. +1 bilateral lower extremity posterior tibials and dorsalis pedal pulses. Also has a left wrist brace that is removable for her left wrist fracture that she recently had about 3 weeks ago. NEUROLOGIC: Alert and oriented x4. Moves all extremities equally. SKIN: Warm, dry, intact. LABORATORY DATA: White blood cells 7000, hemoglobin 11, hematocrit 36, platelet count 238,000. Sodium 141, potassium 4.0, BUN 27, creatinine 1.2, glucose 110, calcium 9.4, magnesium 1.8. Bilirubin 0.38, AST 17, ALT 20, proBNP 4503, albumin 3.7, TSH 3.0. IMAGING: Chest x-ray: Cardiomegaly. There is scattered granuloma bilaterally. The vessels are not distended. There are several old rib fractures. There is a tiny left pleural effusion versus pleural thickening and no consolidation. ASSESSMENT AND PLAN: 1. Acute on chronic diastolic and systolic congestive heart failure. She was seen by Dr. John Noriega in the office who then directly admitted her for diuretic therapy. She will be placed on Lasix drip, daily weights, echocardiogram will be performed, we will monitor BUN and creatinine daily, and we will monitor urine output closely. Repeat chest x-ray in the morning and we will follow potassium levels while on Lasix. 2. Chronic obstructive pulmonary disease. We will continue her on 2 L home O2 dosing. No exacerbation noted at this time. Her bicarbonate on her chemistry level is 36. 3. Obstructive sleep apnea. Continue home CPAP as scheduled. 4. Syncopal spells along with dizziness primarily upon standing fast. Could be an orthostatic response. We will add orthostatic vitals. 5. Hypertension. We will resume home Cozaar if needed. 6. Diabetes mellitus type 2. We will do pattern blood glucoses and sliding scale insulin. 7. Hypothyroidism. Continue Synthroid. 8. Chronic atrial fibrillation. Continue Xarelto 20 mg p.o. daily and will follow up on EKG from admission. 9. Chronic kidney disease stage 1. We will monitor BUN and creatinine daily as patient will be on a Lasix drip. 10. History of breast cancer followed by Dr. Abbasi. 11. Hyperlipidemia. Continue statin. 12. Diabetic neuropathy. Continue Neurontin. 13. Diabetes mellitus. Continue home medication. 14. Recent fall with left wrist fracture. Continue left wrist brace. 15. Deep venous thrombosis prophylaxis. She is currently on Xarelto. Dictated by CAMERON Gonzalez for Arturo Hendricks MD cc: CAMERON Gonzalez MD Anna Thigpen, CRNP Peter Johnson, MD James E. Boyle, MD
[2017-03-23 16:32] LABS: URINE MICRO REVIEW NEEDED? NO; URINE SOURCE VOIDED
[2017-03-23] MEDS: HUMULIN R SUBQ SCH ×2 (16:43→21:46)
[2017-03-23 16:48] LABS: UR CREAT RANDOM 101.3 mg/dL (11-20)
[2017-03-23 16:58] LABS: BILIRUBIN URINE NEGATIVE (NEGATIVE); BLOOD URINE SMALL (NEGATIVE); COLOR YELLOW; GLUCOSE URINE NEGATIVE (NEGATIVE); LEUKOCYTES URINE LARGE (NEGATIVE); NITRITE URINE NEGATIVE (NEGATIVE); PROTEIN URINE 30 mg/dL (NEGATIVE); SP GRAVITY URINE 1.017; TURBIDITY URINE HAZY (CLEAR); UROBILINOGEN URINE NORMAL (NORMAL)
[2017-03-23 17:01] LABS: UR EPITHELIAL CELLS <10 /HPF (<10); URINE BACTERIA 4+ /HPF; URINE RBC <10 /HPF (<10); URINE WBC TNTC /HPF (<10)
--- NOTE | 2017-03-23 19:51 | ECHO REPORT ---
ORDER DATE: 03/23/2017 INTERPRETING PHYSICIAN: Dr. Lu REQUESTING PHYSICIAN: CLINICAL INDICATIONS: A 81-year-old female suspected to have heart failure, COPD, obese. M-MODE MEASUREMENTS: Right ventricle: 3.5 cm. Left ventricle end diastole: 4.5 cm. Left ventricle end systole: 3.1 cm. Posterior wall: 1.1 cm. Interventricular septum: 1.1 cm. Left atrium: 1.9 cm. Aortic root: 4.1 cm. SUMMARY OF 2-DIMENSIONAL IMAGING: This study is technically very limited. The global left ventricular ejection fraction appears to be normal. The right ventricle appears to be moderately enlarged. The aortic valve is calcified and it probably has decreased opening of the cusps. Severity of aortic stenosis cannot be carried out with this study. The patient's windows are very poor. The mitral annulus shows moderate calcification. There is no mitral stenosis. The pulmonic valve appears to be grossly normal. There is a pericardial fat pad. The inferior vena cava is probably at the upper limits of normal. IMPRESSION: In summary, this study is very limited. The evaluation of valvular structures is limited. The patient may have significant aortic stenosis. That may have to be evaluated by some other means or repeat this study when the patient is more stable. The left ventricular function is normal. The patient is in atrial fibrillation which also limits the Doppler evaluation. There is significant enlargement of the right ventricle. Also there is enlargement of the left atrium. There is calcification of the mitral annulus. Doppler evaluation was not carried out. Therefore, this study is really incomplete. Whenever patient is more stable, this study must be repeated. If condition allows, consider transesophageal echo. cc: MD John Dalton MD
[2017-03-23] MEDS: VITAMIN D PO SCH (20:23)
[2017-03-23] MEDS: NEURONTIN PO SCH (20:23)
[2017-03-23] MEDS: PRAVACHOL PO SCH (20:23)
[2017-03-23] MEDS ORDERED: CALMOSEPTINE OINTMENT TOP PRN (21:41)
[2017-03-23] MEDS ORDERED: BLISTEX MEDICATED BERRY LIP BALM TOP PRN (21:41)
[2017-03-23] MEDS ORDERED: MELATONIN PO ONE (22:11)
[2017-03-23] MEDS ORDERED: SODIUM CHLORIDE 0.9% INJ ONE (22:11)
[2017-03-23] MEDS ORDERED: NEXIUM IV ONE (22:11)
[2017-03-23] MEDS: BENADRYL PO PRN (22:16)
[2017-03-24] MEDS: DUONEB (A & A) INH SCH ×4 (03:28→21:00)
[2017-03-24 05:03] LABS: MANUAL DIFF NEEDED? NO
[2017-03-24 05:08] LABS: BASO% 0.3 % (0.0-0.8); EOS# 0.14 X1000 (0.0-0.7); EOS% 2.2 % (0.0-10.0); HEMATOCRIT 34.4 % (37.0-47.0); HEMOGLOBIN 10.2 g/dL (12.0-16.0); LYMPH% 15.7 % (20.5-51.1); MCHC 29.7 g/dL (33-37); MCV 104.6 FL (81-99); MONO# 0.48 X1000 (0.11-0.59); MONO% 7.5 % (1.7-9.3); MPV 10.6 FL (7.4-10.4); NEUT% 74.3 % (42.2-75.2); PLT 230 X1000 (130-400); RBC 3.29 XMIL (4.2-5.4)
[2017-03-24 05:18] LABS: INR 1.17; PROTIME 12.4 Seconds (9.2-11.7)
[2017-03-24 05:20] LABS: HEMOGLOBIN A1C 6.1 % (4.8-6.0)
[2017-03-24 05:39] LABS: MAGNESIUM 1.7 mg/dL (1.5-2.7)
[2017-03-24 05:56] LABS: FERRITIN 127 ng/mL (13-150)
--- NOTE | 2017-03-24 06:08 | Diag Imaging Result Doc PS360 ---
EXAM: CHEST-PORTABLE HISTORY: Heart failure TECHNIQUE: Portable COMPARISON: 03/23/2017 FINDINGS: There is a small left pleural effusion. The heart remains mildly enlarged. There are scattered granuloma. No consolidation. There are several old rib fractures. Surgical clips are found in the left axilla. The overall appearance is similar to that of the prior exam. IMPRESSION: Stable chest. Electronically signed by Sae Brandon 03/24/2017 6:06 AM
[2017-03-24] MEDS: HUMULIN R SUBQ SCH ×4 (06:13→21:02)
[2017-03-24] MEDS: SYNTHROID PO SCH (06:16)
--- NOTE | 2017-03-24 07:36 | EKG Report ---
Test Performed on : 03/23/2017 10:06:53 PM Test Reason : Chest pain Blood Pressure : / mmHG Vent. Rate : 055 BPM Atrial Rate : 267 BPM P-R Int : 000 ms QRS Dur : 074 ms QT Int : 458 ms P-R-T Axes : 000 038 037 degrees QTc Int : 438 ms Aflutter Low voltage QRS Septal infarct (cited on or before 23-MAR-2017) Abnormal ECG When compared with ECG of 23-MAR-2017 13:57, (Unconfirmed) Flutter waves more defined No other significant change noted Confirmed by Matteo Noriega DO ([id number]) on 03/25/2017 1:30:43 PM
--- NOTE | 2017-03-24 07:36 | EKG Report ---
Test Performed on : 03/24/2017 06:37:40 AM Test Reason : Heart Failure Admission Blood Pressure : / mmHG Vent. Rate : 053 BPM Atrial Rate : 267 BPM P-R Int : 000 ms QRS Dur : 072 ms QT Int : 432 ms P-R-T Axes : 000 030 100 degrees QTc Int : 405 ms Aflutter (vs. junctional bradycardia) Low voltage QRS Nonspecific T wave abnormality Abnormal ECG When compared with ECG of 23-MAR-2017 22:06, (Unconfirmed) No significant change was found Confirmed by Matteo Noriega DO ([id number]) on 03/25/2017 1:32:18 PM
[2017-03-24] MEDS: ASPIRIN EC PO SCH (08:48)
[2017-03-24] MEDS: XARELTO PO SCH (08:48)
[2017-03-24] MEDS: COZAAR PO SCH (08:50)
[2017-03-24] MEDS: PREDNISONE PO SCH (08:50)
[2017-03-24] MEDS: LEXAPRO PO SCH (08:50)
[2017-03-24] MEDS: NEURONTIN PO SCH ×2 (08:51→21:02)
[2017-03-24] MEDS: KLOR-CON PO SCH (08:51)
[2017-03-24] MEDS: VITAMIN D PO SCH ×2 (08:51→21:01)
[2017-03-24] MEDS ORDERED: BUMEX PO SCH (09:00)
[2017-03-24] MEDS ORDERED: CARDIZEM CD PO SCH (09:00)
[2017-03-24] MEDS ORDERED: NS 250 ML ONE (09:27)
--- NOTE | 2017-03-24 09:34 | PROGRESS NOTE ---
DATE: 03/24/2017 SUBJECTIVE: Patient reports feeling a little bit less short of breath. Denies any chest pain, any fever or chills. OBJECTIVE: Vital Signs: Temperature 98.4 degrees, heart rate 52, respiratory rate 18, blood pressure 155/67, O2 saturation 97% on 2 L nasal cannula. General Examination: This is a chronically ill-looking, morbidly obese female, a 81-year-old, lying in bed in no acute distress. HEENT: Head is normocephalic, atraumatic. There is some bruising over the right orbital area. Anicteric sclerae and pale conjunctivae. Mucous membranes moist. Pupils are equal, round, reactive to light and accommodation. Neck: Supple. No JVD noted. No carotid bruits. No lymphadenopathy. No thyromegaly. Cardiovascular Exam: Irregularly irregular heart rhythm. No murmurs, gallops or rubs. Respiratory Exam: There are crackles noted in both bases. Patient not using any accessory muscles or having work of breathing. Abdomen: Soft, obese, nontender to palpation. Bowel sounds present. No organomegaly. Extremities: 3+ pitting edema in bilateral lower extremities. Also, there is mild edema in the lower abdomen. Peripheral pulses present in both legs. There is also a left wrist brace noted. Neurological Exam: Patient alert and oriented x3. Moves 4 extremities. Cranial nerves 2-12 grossly normal. LABORATORY DATA: White cell count 6.37, hemoglobin 10.2, hematocrit 34.4, platelets 330. BMP is okay with proBNP of 5621. DIAGNOSTIC DATA: Echocardiogram limited view shows possible significant aortic stenosis. ASSESSMENT AND PLAN: 1. Acute on chronic diastolic and systolic congestive heart failure. Dr. Noriega from cardiology has sent this patient to the office for this condition. Patient has been placed on Lasix drip, and so far has removed 2 L of urine. We will continue with the same management. We will continue following recommendations from cardiology. The x-ray from today shows stable chest with small left pleural effusion. 2. Chronic obstructive pulmonary disease. The patient is not in any exacerbation right now, but considering his mild chronic obstructive pulmonary disease, we prefer to continue with breathing treatments 4 times per day. 3. Obstructive sleep apnea. Continue with CPAP as scheduled. 4. Syncopal episode. It could be orthostatic. Blood pressure now is okay. There is some orthostasis noted on vitals. We are going to continue monitoring this patient closely. 5. Diabetes mellitus type 2. We will continue with sliding scale insulin. 6. Hypothyroidism. Will continue with home doses of Synthroid. 7. Chronic atrial fibrillation. Patient is on Xarelto 20 mg oral daily. We will continue with same management, but we have to weigh risks versus benefits at discharge because of high risk of falling of this patient. We will see what cardiology thinks. 8. Chronic kidney disease stage 1. We are going to check basic metabolic panel every day considering that this patient is on Lasix drip. 9. History of breast cancer. Follow with Dr. Abbasi. Aware. 10. Hyperlipidemia. We will continue with the statin. 11. Diabetic neuropathy. We will continue with Neurontin. 12. Deep vein thrombosis prophylaxis. Actually, the patient is on Xarelto, so we are going to need to use another agent for prevention of this condition. cc: Arturo Hendricks MD MTDD
[2017-03-24 09:44] LABS: INR 1.15; PROTIME 12.2 Seconds (9.2-11.7)
--- NOTE | 2017-03-24 11:03 | Diag Imaging Result Doc PS360 ---
EXAM: CHEST-PORTABLE HISTORY: picc line placement TECHNIQUE: Portable upright AP COMPARISON: Compared to study performed at 5:00 AM FINDINGS: Interval placement of a right-sided PICC line. The tip overlies the mid superior vena cava. There is been no other change in appearance of chest since the prior exam. IMPRESSION: The tip of the right PICC line overlies the mid superior vena cava Electronically signed by Sae Brandon 03/24/2017 11:01 AM
[2017-03-24] MEDS ORDERED: ZAROXOLYN PO ONE (11:44)
[2017-03-24] MEDS: LASIX 100 MG in NS 90 ML IV SCH (12:44)
[2017-03-24] MEDS ORDERED: MAGNESIUM SULFATE 2 GM/S.W.I. 2 GM/50 ML IVPB IV ONE (13:01)
--- NOTE | 2017-03-24 13:27 | PROGRESS NOTE ---
DATE: 03/24/2017 SUBJECTIVE: She reports she feels better today. She did have a choking and vomiting episode yesterday related to some difficulty eating her food. OBJECTIVE: Vital signs: She is afebrile. Heart rate is in the 50s to 60s. Her blood pressures have been anywhere from the 120s to 150s systolic. Her I Os thus far for the course of the hospitalization have been -1.3 L with 1 void not measured. General: No acute distress. Cardiovascular: She sounds to be in a regular rate and rhythm. No murmurs. No S3. She has 1+ lower extremity edema. Chest: Clear bilaterally. No increased work of breathing. Abdomen: Soft, nontender, nondistended. PERTINENT DATA: White count 6.4, hematocrit 34.4, platelet count 230,000. INR 1.15. Her A1c is 6.1. Her proBNP today is 5621. LDL is 61. ASSESSMENT: Diastolic heart failure. PLAN: Continue with diuresis. She was administered 1 dose of metolazone this morning. We may consider repeating that dose in the morning if she tolerates it. Her magnesium is a little bit low. I will replete her with 2 g today. Laboratories will be checked in the morning and essentially we will continue with diuresis. cc: John Noriega MD
[2017-03-24] MEDS: BENADRYL PO PRN (21:01)
[2017-03-24] MEDS: PRAVACHOL PO SCH (21:02)
[2017-03-25] MEDS: DUONEB (A & A) INH SCH ×4 (03:14→21:25)
[2017-03-25] MEDS: SYNTHROID PO SCH ×2 (05:18→06:13)
[2017-03-25 05:57] LABS: CALCIUM 9.4 mg/dL (8.8-10.2); MAGNESIUM 1.9 mg/dL (1.5-2.7); POTASSIUM 3.2 mmol/L (3.5-5.1)
[2017-03-25] MEDS: HUMULIN R SUBQ SCH ×4 (06:12→20:11)
[2017-03-25] MEDS ORDERED: POTASSIUM CHLORIDE 40 MEQ/SWI 40 MEQ/100 ML IVPB IV ONE (08:00)
[2017-03-25] MEDS: LEXAPRO PO SCH (08:35)
[2017-03-25] MEDS: KLOR-CON PO SCH (08:35)
[2017-03-25] MEDS: VITAMIN D PO SCH ×2 (08:36→20:10)
[2017-03-25] MEDS: NEURONTIN PO SCH ×2 (08:36→20:11)
[2017-03-25] MEDS: XARELTO PO SCH (08:36)
[2017-03-25] MEDS: ASPIRIN EC PO SCH (08:36)
[2017-03-25] MEDS: COZAAR PO SCH (08:36)
[2017-03-25] MEDS: PREDNISONE PO SCH (08:36)
[2017-03-25] MEDS ORDERED: MAGNESIUM SULFATE 2 GM/S.W.I. 2 GM/50 ML IVPB IV ONE (09:09)
[2017-03-25] MEDS ORDERED: ZAROXOLYN PO ONE (09:09)
--- NOTE | 2017-03-25 10:04 | PROGRESS NOTE ---
DATE: 03/25/2017 SUBJECTIVE: The patient reports less short of breath and less swelling in both legs. She denies any chest pain, any fever or chills. OBJECTIVE: Vital Signs: Temperature 97.6 degrees, heart rate 103, respiratory rate 20, blood pressure 141/70, and O2 saturation 98% on 2 liters nasal cannula. General Examination: This is a chronically ill-looking, morbidly obese 81-year-old female lying in bed, in no acute distress. HEENT: Head is normocephalic. There is some bruising over the right orbital area. Anicteric sclerae and pale conjunctivae. Mucous membranes moist. Neck: Supple. No JVD noted. No carotid bruits. No lymphadenopathy. No thyromegaly. Cardiovascular: Irregular rate, irregular heart rhythm. No murmurs, gallops, or rubs. Respiratory: Crackles are still present in both bases, but definitely better in comparing with admission. The patient is not using any accessory muscles or having work of breathing. Abdomen: Soft, nontender to palpation. Bowel sounds present. No organomegaly. Extremities: There is 2+ pitting edema in bilateral lower extremities. Mild edema also in the lower abdomen that is getting better. Peripheral pulses present in both legs. There is also a left wrist brace now. Neurological: The patient alert and oriented x3. Moves 4 extremities. LABORATORY DATA: The BMP shows potassium 3.2 and creatinine 1.2. ASSESSMENT AND PLAN: 1. Acute diastolic heart failure. The patient is doing fine. Dr. Noriega from cardiology has placed this patient on furosemide drip, and she received also 1 dose of metolazone, and so far she have removed 2 liters of urine; it is almost 5 liters since admission. We are going to continue with the same management. 2. Chronic obstructive pulmonary disease. The patient is not in any exacerbation, but we have placed this patient on DuoNeb every 6 hours as maintenance therapy. We will continue with the same management. 3. Obstructive sleep apnea. The patient is supposed to continue using CPAP as scheduled. 4. Diabetes mellitus type 2. We will continue with sliding scale insulin. 5. Hypothyroidism. We will continue with home dose of Synthroid. 6. Chronic atrial fibrillation. Currently, this patient is receiving Xarelto 20 mg p.o. daily, and while she is in the hospital we will continue with the same management, but at discharge we will need to think about the risks of falling versus continue with the anticoagulation. We will follow the recommendations from Cardiology. 7. Chronic kidney disease stage 1, stable. 8. History of breast cancer, aware. 9. Hyperlipidemia. We will continue with the statin. 10. Diabetic neuropathy. We will continue with Neurontin. 11. Deep vein thrombosis prophylaxis. The patient is on Xarelto. cc: Arturo Hendricks MD
--- NOTE | 2017-03-25 10:30 | PROGRESS NOTE ---
DATE: 03/25/2017 SUBJECTIVE: Ms. Duke reports she is doing better today. PHYSICAL EXAMINATION: She is afebrile. Her heart rate has been anywhere from the 50s to the 100s. She had a low of 43. Documented this morning. Blood pressure 141/75. Her I's and O's are - 5.3 throughout he course of the hospitalization but she has a very poor intake measured. PHYSICAL EXAMINATION.: General: No acute distress. Cardiovascular: She sounds to be in a regular rate and rhythm. She has 1+ bilateral lower extremity edema and warm well perfused lower extremities. Chest: Clear bilaterally. No increased work of breathing. Abdomen: Soft, nontender, nondistended. She has no obvious organomegaly. PERTINENT DATA: Sodium 144, potassium 3.2, BUN 24, creatinine 1.2. Magnesium level 1.9 proBNP 6292. ASSESSMENT: Diastolic heart failure. PLAN: Her proBNP is curiously still rising although, it does seem total negative from an exam standpoint as well as a fluid balance standpoint. I would continue her on the Lasix drip. We are giving her an extra dose of metolazone as we did yesterday. Her potassium is being repleted. I will give her 2 g of Mag again. We will recheck her labs in the morning. Hopefully we can anticipate discharge within the next 48 hours. cc: John Noriega MD
[2017-03-25] MEDS ORDERED: LACTULOSE PO ONE (11:39)
[2017-03-25] MEDS: LASIX 100 MG in NS 90 ML IV SCH (14:00)
[2017-03-25] MEDS: PRAVACHOL PO SCH (20:11)
[2017-03-26] MEDS: DUONEB (A & A) INH SCH ×4 (03:25→21:05)
[2017-03-26 05:40] LABS: CALCIUM 9.2 mg/dL (8.8-10.2); MAGNESIUM 1.9 mg/dL (1.5-2.7); POTASSIUM 3.2 mmol/L (3.5-5.1)
[2017-03-26] MEDS: HUMULIN R SUBQ SCH ×4 (06:21→20:35)
[2017-03-26] MEDS: SYNTHROID PO SCH (06:22)
[2017-03-26] MEDS: MIRALAX PO SCH ×2 (08:46→20:35)
[2017-03-26] MEDS: ASPIRIN EC PO SCH (08:47)
[2017-03-26] MEDS: VITAMIN D PO SCH ×2 (08:47→20:35)
[2017-03-26] MEDS: PREDNISONE PO SCH (08:47)
[2017-03-26] MEDS: COZAAR PO SCH (08:47)
[2017-03-26] MEDS: XARELTO PO SCH (08:48)
[2017-03-26] MEDS: NEURONTIN PO SCH ×2 (08:48→20:35)
[2017-03-26] MEDS: LEXAPRO PO SCH (08:48)
[2017-03-26] MEDS: KLOR-CON PO SCH (08:48)
[2017-03-26] MEDS ORDERED: POTASSIUM CHLORIDE 60 MEQ in NS 500 ML IV ONE (09:00)
--- NOTE | 2017-03-26 10:12 | PROGRESS NOTE ---
DATE: 03/26/2017 SUBJECTIVE: The patient reports feeling much better with less shortness of breath. Less swelling in both legs. No fever or chills reported. No chest pain or palpitations. OBJECTIVE: Vital Signs: Temperature 98.0 degrees, heart rate 95 respiratory rate 18, blood pressure 149/73. O2 saturation 97% on 2 L nasal cannula.General Examination: This is a chronically ill-looking, morbidly obese, 81-year-old female lying in bed in no acute distress. HEENT: Head is normocephalic and atraumatic. Anicteric sclerae and pale conjunctivae. Mucous membranes moist. Neck: Supple. Head is normocephalic. There is some bruising over the right orbital area. Anicteric sclerae and pale conjunctivae. Mucous membranes moist. Neck: Supple. No JVD noted. No carotid bruits. No lymphadenopathy. No thyromegaly. Cardiovascular: Irregularly irregular heart rhythm. No murmurs, gallops, or rubs. Respiratory : Crackles are still present in both bases but definitely better in comparing with previous days. Patient is not using any accessory muscles or having work of breathing. Abdomen: Soft, nontender to palpation. Bowel sounds present. No organomegaly. Extremities: 1+ pitting edema in both lower extremities. Mild edema noted also in the lower abdomen; that is getting better. Peripheral pulses present in both legs. Left brace placed. Neurologic: Patient alert and oriented x3. Moves 4 extremities. LABORATORY DATA: Reviewed and remarkable for potassium 3.2 and creatinine 1.2. ASSESSMENT AND PLAN: 1. Acute diastolic heart failure. The patient is doing fine. The patient is on Lasix drip as per Dr. John Noriega. She also received again 1 dose of metolazone. So far , we have removed almost 7 L of urine yesterday. So, she has responded to the therapy. We are going to continue with the same management. 2. Chronic obstructive pulmonary disease on home oxygen. Patient is not on any exacerbation. Patient is on DuoNebs every 6 hours. She is on baseline oxygen needs. We will continue with the same management. 3. Obstructive sleep apnea. Patient is supposed to continue using CPAP at night as scheduled. 4. Diabetes mellitus, type 2. We will continue with sliding scale insulin. 5. Hypothyroidism. We will continue with home doses of Synthroid. 6. Chronic atrial fibrillation. Patient receiving Xarelto 20 mg daily. 7. Chronic kidney disease, stage 1, stable. 8. History of breast cancer, aware. 9. Hyperlipidemia. We will continue with the statin. 10. Diabetic neuropathy. Patient currently on Neurontin. We will continue with the same management. 11. Deep vein thrombosis prophylaxis. Patient is on Xarelto. cc: Arturo Hendricks MD MTDD
[2017-03-26] MEDS: LASIX 100 MG in NS 90 ML IV SCH (14:01)
--- NOTE | 2017-03-26 14:49 | PROGRESS NOTE ---
DATE: 03/26/2017 SUBJECTIVE: Patient denies shortness of breath on supplemental oxygen per nasal cannula. There has been no chest pain. She relates tendency for recurrent falls and had recent fall occur after she went to the bathroom and emptied her bladder. She normally walks with a walker but after she had emptied her bladder she went back and sat down and then got back up to close her bedroom door and passed out falling hitting the right side of her face which now has a bruise. OBJECTIVE: Vital signs: Blood pressure 112/41, heart rate 64. Neck: Jugular venous distention suggests mild elevation in central venous pressure. Chest: Clear to auscultation. Cardiac: Exam reveals an irregular rate and rhythm without appreciable murmur or gallop. Extremities: Demonstrate 1+ to 2+ pretibial edema. IMPRESSION: 1. Acute on chronic congestive heart failure. Suspect significant component of cor pulmonale related to severe chronic obstructive pulmonary disease. Also component of diastolic left ventricular dysfunction. Patient clinically improving with diuresis. She diuresed vigorously over the last 24 hours and today shows some degree of contraction alkalosis in her lab work. 2. Recurrent syncope. Some features to suggest vasovagal etiology. 3. Severe chronic obstructive pulmonary disease requiring chronic home oxygen. 4. Obstructive sleep apnea requiring CPAP. 5. Hypertension. 6. Type 2 diabetes mellitus. 7. Question of aortic valve disorder. Echocardiography reports calcifications aortic valve with reduced mobility but assessment of aortic valve area difficult. 8. Status post left mastectomy for breast cancer with lymph node dissection and chronic lymphedema left upper extremity. RECOMMENDATIONS: 1. Continue diuresis more gradual today. 2. Would not administer any further metolazone. 3. Consider transition to torsemide orally. cc: David Palacios MD
[2017-03-26] MEDS: PRAVACHOL PO SCH (20:35)
[2017-03-27] MEDS: DUONEB (A & A) INH SCH ×4 (03:40→21:15)
[2017-03-27 05:20] LABS: MANUAL DIFF NEEDED? NO
[2017-03-27 05:24] LABS: BASO% 0.2 % (0.0-0.8); EOS# 0.18 X1000 (0.0-0.7); HEMATOCRIT 35.9 % (37.0-47.0); HEMOGLOBIN 10.9 g/dL (12.0-16.0); LYMPH# 1.34 X1000 (1.2-3.4); LYMPH% 22.6 % (20.5-51.1); MCH 31.3 PG (27-31); MCHC 30.4 g/dL (33-37); MCV 103.2 FL (81-99); MONO# 0.49 X1000 (0.11-0.59); MONO% 8.2 % (1.7-9.3); MPV 10.3 FL (7.4-10.4); PLT 258 X1000 (130-400); RBC 3.48 XMIL (4.2-5.4)
[2017-03-27 05:53] LABS: CALCIUM 9.3 mg/dL (8.8-10.2); MAGNESIUM 1.9 mg/dL (1.5-2.7); POTASSIUM 3.6 mmol/L (3.5-5.1)
[2017-03-27] MEDS: SYNTHROID PO SCH (06:06)
[2017-03-27] MEDS: HUMULIN R SUBQ SCH ×4 (06:07→20:52)
[2017-03-27] MEDS: LEXAPRO PO SCH (08:44)
[2017-03-27] MEDS: KLOR-CON PO SCH (08:44)
[2017-03-27] MEDS: MIRALAX PO SCH ×2 (08:44→20:52)
[2017-03-27] MEDS: ASPIRIN EC PO SCH (08:45)
[2017-03-27] MEDS: XARELTO PO SCH (08:45)
[2017-03-27] MEDS: COZAAR PO SCH (08:45)
[2017-03-27] MEDS: NEURONTIN PO SCH ×2 (08:45→20:52)
[2017-03-27] MEDS: PREDNISONE PO SCH (08:45)
[2017-03-27] MEDS: VITAMIN D PO SCH ×2 (08:45→20:52)
--- NOTE | 2017-03-27 17:32 | PROGRESS NOTE ---
DATE: 03/27/2017 SUBJECTIVE: Patient continues without chest discomfort or dyspnea on supplemental oxygen per nasal cannula. OBJECTIVE: Vital Signs: Blood pressure 109/55, heart rate 66, oxygen saturation 98% on supplemental oxygen with nasal cannula at 2 L. I's and O's reflect generous diuresis over the last 24 hours. There is no significant jugular venous distention. Chest: Clear to auscultation. Cardiac Exam: Reveals a regular rate and rhythm without appreciable murmur or gallop. Extremities: Demonstrate 1+ pretibial edema. LABORATORY DATA: Includes BUN 26, creatinine 1.2, potassium 3.6. IMPRESSION: 1. Acute on chronic congestive heart failure. Suspect significant component of cor pulmonale related to severe chronic obstructive pulmonary disease as well as component of diastolic left ventricular dysfunction. Patient clinically improving with diuresis. She diuresed vigorously again over the last 24 hours. 2. Recurrent syncope with some features to suggest vasovagal etiology. 3. Severe chronic obstructive pulmonary disease requiring chronic home oxygen. 4. Obstructive sleep apnea. 5. Hypertension. 6. Type 2 diabetes mellitus. 7. Question of aortic valve disorder. RECOMMENDATIONS: 1. Would discontinue intravenous Lasix drip late this afternoon and transition to torsemide. 2. Probable discharge to home tomorrow. cc: David Palacios MD
[2017-03-27] MEDS: PRAVACHOL PO SCH (20:52)
[2017-03-28] MEDS: DUONEB (A & A) INH SCH ×2 (03:10→10:00)
[2017-03-28 05:11] LABS: MANUAL DIFF NEEDED? NO
[2017-03-28 05:20] LABS: BASO% 0.2 % (0.0-0.8); EOS# 0.25 X1000 (0.0-0.7); EOS% 4.5 % (0.0-10.0); HEMATOCRIT 36.6 % (37.0-47.0); HEMOGLOBIN 11.2 g/dL (12.0-16.0); LYMPH# 1.36 X1000 (1.2-3.4); LYMPH% 24.4 % (20.5-51.1); MCH 31.5 PG (27-31); MCHC 30.6 g/dL (33-37); MCV 102.8 FL (81-99); MONO# 0.44 X1000 (0.11-0.59); MONO% 7.9 % (1.7-9.3); MPV 10.2 FL (7.4-10.4); PLT 257 X1000 (130-400); RBC 3.56 XMIL (4.2-5.4)
[2017-03-28 05:54] LABS: CALCIUM 9.4 mg/dL (8.8-10.2); POTASSIUM 3.5 mmol/L (3.5-5.1)
[2017-03-28] MEDS: HUMULIN R SUBQ SCH ×2 (06:12→12:09)
[2017-03-28] MEDS: SYNTHROID PO SCH (06:18)
--- NOTE | 2017-03-28 07:20 | PROGRESS NOTE ---
DATE: 03/27/2017 The patient reports feeling much better with no shortness of breath, less swelling in both legs. No fever or chills reported. No chest palpitations. OBJECTIVE: Vital Signs: Temperature 98.1 degrees, heart rate 63, respiratory rate 16, blood pressure 135/59. O2 saturation 98% on 2 L nasal cannula. General Examination: This is a chronically ill-looking, morbidly obese, 81-year-old female lying in bed, in no acute distress. HEENT: Head is normocephalic, atraumatic. Anicteric sclerae and pale conjunctivae. Mucous membranes moist. Some bruising over the right orbital area. Neck: Supple. JVD noted. No carotid bruits. No lymphadenopathy. No thyromegaly. Cardiovascular Exam: An irregularly irregular heart rhythm. No murmurs, gallops, or rubs. Respiratory: Minimal crackles noted in both bases. The patient is not using any accessory muscles or having work of breathing. Abdomen: Soft, nontender to palpation. Bowel sounds present. No organomegaly. Extremities: 1+ pitting edema in both lower extremities. Mild edema noted in the lower abdomen , definitely getting better. Peripheral pulses present in both legs. Left brace in place it. Neurological: Patient alert oriented x3. Moves 4 extremities. LABORATORY DATA: Reviewed. ASSESSMENT AND PLAN: 1. Acute diastolic heart failure. The patient is on Lasix drip and she is doing fine. So far she has moved almost 2.5 L of urine in the 24 hours. We will continue with the same management. Cardiology is following this patient. 2. Chronic obstructive pulmonary disease with home oxygen. By now, the patient is at her baseline oxygen needs which is 2 L. 3. Obstructive sleep apnea. Patient is supposed to continue using CPAP at night here in the hospital. 4. Diabetes mellitus type 2. We will continue with sliding scale insulin. 5. Hypothyroidism. Will continue on home doses of Synthroid. 6. Chronic atrial fibrillation. Will continue with Xarelto 20 mg p.o. daily. 7. Chronic kidney disease stage 1, stable. 8. History of breast cancer, aware. 9. Hyperlipidemia. Will continue with the statin. 10. Diabetic neuropathy. Patient is on Neurontin. We will continue with the same management. 11. Deep vein thrombosis prophylaxis. Patient is on Xarelto. cc: Arturo Hendricks MD MTDD
[2017-03-28] MEDS: NEURONTIN PO SCH (08:51)
[2017-03-28] MEDS: PREDNISONE PO SCH (08:51)
[2017-03-28] MEDS: MIRALAX PO SCH (08:51)
[2017-03-28] MEDS: XARELTO PO SCH (08:51)
[2017-03-28] MEDS: ASPIRIN EC PO SCH (08:51)
[2017-03-28] MEDS: KLOR-CON PO SCH (08:51)
[2017-03-28] MEDS: COZAAR PO SCH (08:51)
[2017-03-28] MEDS: VITAMIN D PO SCH (08:51)
[2017-03-28] MEDS: LEXAPRO PO SCH (08:52)
[2017-03-28] MEDS ORDERED: DEMADEX PO SCH ×2 (09:00→21:00)
[2017-03-28 09:06] LABS: URINE MICRO REVIEW NEEDED? NO; URINE SOURCE CLEAN CATCH
[2017-03-28 09:08] LABS: BILIRUBIN URINE NEGATIVE (NEGATIVE); BLOOD URINE NEGATIVE (NEGATIVE); COLOR YELLOW; GLUCOSE URINE NEGATIVE (NEGATIVE); LEUKOCYTES URINE LARGE (NEGATIVE); NITRITE URINE POSITIVE (NEGATIVE); PROTEIN URINE TRACE mg/dL (NEGATIVE); SP GRAVITY URINE 1.007; TURBIDITY URINE HAZY (CLEAR); UROBILINOGEN URINE NORMAL (NORMAL)
[2017-03-28 09:09] LABS: UR EPITHELIAL CELLS <10 /HPF (<10); URINE BACTERIA 4+ /HPF; URINE CULTURE NEEDED? YES; URINE RBC <10 /HPF (<10); URINE WBC TNTC /HPF (<10)
--- NOTE | 2017-03-28 11:38 | PROGRESS NOTE ---
DATE: 03/28/2017 SUBJECTIVE: She reports she is doing better today. She reports improved breathing. PHYSICAL EXAMINATION: Vital Signs: She is afebrile. Heart rate of 80, blood pressure 122/73. Her input and output for the course of the hospitalization are -15 liters. General: She is in no acute distress. Cardiovascular: Regular rate and rhythm. No murmurs. She has no S3. She has no lower extremity edema. Chest: Clear bilaterally. No increased work of breathing. Abdomen: Soft, nontender, nondistended. She has no obvious organomegaly. Skin: Exam is warm and dry throughout. PERTINENT DATA: Sodium is 143, potassium 3.5, BUN 27, creatinine 1.1. ASSESSMENT: Likely diastolic heart failure, as well as a component of cor pulmonale. PLAN: She was switched over to Demadex 20 mg daily, which would be equivalent to her home dose of Bumex 2 mg daily; however, the patient continued to retain fluid on that dosage adjustment, so we will increase her to b.i.d. dosing of her Demadex. We will plan on checking a lab in 1 week, which I printed out a lab slip for her to have that done. I am okay with her being discharged home. We will plan on seeing her back in the office in roughly 2 weeks. cc: John Noriega MD
[2017-03-28 11:47] VITALS: BP 118/43
--- NOTE | 2017-03-29 07:33 | DISCHARGE SUMMARY ---
ADMISSION DATE: 03/23/2017 DISCHARGE DATE: 03/28/2017 CONSULTATIONS: Dr. John Noriega with Cardiology. PERTINENT PROCEDURES: Echocardiogram with limited views. Study is very limited. Left ventricle function is normal. The patient was in atrial fibrillation. Significant enlargement of the right ventricle. Enlargement of the left atrium. Chest x-ray showed cardiomegaly. DISCHARGE DIAGNOSES: 1. Diastolic heart failure with a component of cor pulmonale. The patient has been switched to Demadex 20 mg twice daily. Cardiology plans on checking her labs in 1 week, and will follow up in their office in 2 weeks. 2. Chronic obstructive pulmonary disease without exacerbation. Continue home oxygen. 3. Obstructive sleep apnea. The patient will continue on her home continuous positive airway pressure. 4. Syncopal spells along with dizziness, primarily upon standing, resolved. 5. Hypertension. Continue home medications. 6. Diabetes mellitus type 2. Continue home medications. 7. Hypothyroidism. Continue Synthroid. 8. Chronic atrial fibrillation. Continue Xarelto per Dr. Vela. The patient had several episodes of sinus bradycardia. Upon followup, Cardiology will decide if she will continue back on her Cardizem. 9. Chronic kidney disease stage 1, aware. 10. Breast cancer history, followed by Dr. Abbasi. 11. Hyperlipidemia. Continue statin. 12. Diabetic neuropathy. Continue Neurontin. 13. Recent fall with wrist fracture. Continue her left wrist brace. HOSPITAL COURSE: Ms. Duke is a 81-year-old, morbidly obese, female , who carries a past medical history of COPD, on home O2, diastolic heart failure, hypothyroidism, diabetes mellitus type 2, chronic atrial fibrillation. She was a direct admit from Dr. John Noriega's office. Three weeks ago, she had a fall due to syncope. She had right eye bruising, as well as a fractured left wrist. She currently is wearing a brace. She complained of dizzy spells when she stands up too fast, shortness of breath that comes and goes that is primarily worse with activity, as well as dizziness with activity. She is unable to walk 10 feet without significant shortness of breath. She had a 5-pound weight gain over the last week, and a 30-pound weight gain over the past year. She was directly admitted to the hospital from Dr. Noriega's office , placed on CIC for Lasix drip, routine labs, and an echocardiogram. She has clinically improved with diuresis. She was transitioned from Lasix drip to p.o. torsemide. Her I's and O's for the course of the hospital are about -15 L. She does have improved breathing. She was taken off her home Bumex, and switched to torsemide daily, and she will be discharged on torsemide b.i.d. She will have labs in 1 week, and then follow up with Cardiology in 2 weeks. VITAL SIGNS: Temperature is 97.6 degrees, heart rate 67, respirations 21, blood pressure is 118/43, O2 is 100% on 2 L nasal cannula. DISCHARGE DIET: Mechanical soft. DISCHARGE MEDICATIONS: 1. DuoNeb 3 mL inhaled RT every 6 hours. 2. Aspirin 81 mg p.o. daily. 3. Vitamin D3, 2000 units p.o. b.i.d. 4. Benadryl 25 mg p.o. daily. 5. Lexapro 20 mg p.o. daily. 6. Gabapentin 300 mg p.o. b.i.d. 7. Synthroid 25 mcg p.o. daily. 8. Cozaar 50 mg p.o. daily. 9. Glucophage 1000 mg p.o. b.i.d. 10. Micro-K 10 mEq p.o. daily. 11. Pravachol 40 mg p.o. at bedtime. 12. Prednisone 10 mg p.o. daily. 13. Xarelto 20 mg p.o. daily. 14. Demadex 20 mg p.o. b.i.d. FOLLOWUP: Ms. Duke is being discharged home with home health. She will follow up at [facility] in 1 week for a BMP. She will follow up with Dr. John Noriega in 2 weeks, as well as her primary care physician, Dr. Dunia Hester, in 7 to 10 days. The patient can return to the ED for any worsening of symptoms. TIME SPENT: Discharge time was 35 minutes. Dictated by CAMERON Saavedra for Arturo Hendricks MD cc: MD Dunia Goodman MD [facility]
== END 2017-03-28 15:30 | disposition home health service (06) ==
LOC: SUATTDRO 11:44 → DIRADM 11:44 → 3S 12:12
PROVIDERS: ATTEND Internal Medicine